=== PATIENT | male | born 1965 | race Two or more races ===

== ENCOUNTER 2019-12-04 19:24 | Emergency (ER) | payer SELFPAY ==
[~2019-12-04] VITALS: Ht 177.8 cm; Wt 87.1 kg
[2019-12-04 19:40] VITALS: BP 125/84
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
[2019-12-04] MEDS ORDERED: Methocarbamol 750mg tab ORAL ONE (19:45)
[2019-12-04] MEDS ORDERED: Ketorolac 30mg Inj IM ONE (19:45)
[2019-12-04] MEDS ORDERED: Acetaminophen 500mg (ES) tab ORAL ONE (19:45)
[2019-12-04] MEDS ORDERED: IBUPROFEN600 MG ORAL (19:50)
[2019-12-04] MEDS ORDERED: ROBAXIN-750750 MG PO (19:50)
[2019-12-04] MEDS ORDERED: LIDODERM700 M1 TOPIC (19:50)
[2019-12-04] MEDS ORDERED: TYLENOL325 MG ORAL (19:50)
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
[2019-12-04 20:05] VITALS: BP 120/79
--- NOTE | 2019-12-04 20:05 | NUR ---
ER DISCHARGE NOTE: Patient is cleared to be discharged per ERMD, pt is aox4, on room air, with stable vital signs. pt was given dc and prescription instructions, pt was able to verbalize understanding, pt id band removed without complications. pt is able to ambulate with steady gait. pt took all belongings.
== END 2019-12-04 20:05 | disposition home or self-care (01) ==
LOC: EMR 19:45
DX: M54.2 Cervicalgia (principal); M25.552 Pain in left hip; V43.52XA Car driver injured in collision with other type car in traffic accident, initial encounter; Y92.410 Unspecified street and highway as the place of occurrence of the external cause; T14.8XXA Other injury of unspecified body region, initial encounter
CPT/HCPCS: 96372; 99283; J1885